=== PATIENT | female | born 1945 | race Two or more races ===

== ENCOUNTER 2021-02-11 11:47 | Inpatient (IN) | payer OTHER ==
[~2021-02-11] VITALS: Ht 157.5 cm; Wt 58.1 kg
[2021-02-11] MEDS ORDERED: LEVOTHYROXINE75 MCG PO (12:09)
[2021-02-11] MEDS ORDERED: AMLODIPINE BESYL5 MG PO (12:09)
[2021-02-11] MEDS ORDERED: GABAPENTIN300 M2 PO (12:10)
[2021-02-11] MEDS ORDERED: VASOTEC20 MG PO (12:10)
[2021-02-11] MEDS ORDERED: PROTONIX20 MG PO (12:11)
[2021-02-11] MEDS ORDERED: ELIQUIS5 M1 PO (12:11)
[2021-02-13] MEDS ORDERED: MAXIMUM D3325 MCG (11:29)
[2021-02-13] MEDS ORDERED: FLORAVANCE CAP1 EACH (11:29)
[2021-02-13] MEDS ORDERED: FAMOTIDINE20 MG (11:29)
[2021-02-13] MEDS ORDERED: ALENDRONATE SOD70 MG (11:30)
[2021-02-13] MEDS ORDERED: EZETIMIBE10 MG (11:30)
== END 2021-02-14 11:51 | disposition home or self-care (01) | DRG 390 ==
LOC: ER 11:47 → SURH 18:19
PROVIDERS: ADMIT Colon & Rectal Surgery; ATTEND Colon & Rectal Surgery
PROC: BW21YZZ Computerized Tomography (CT Scan) of Abdomen and Pelvis using Other Contrast (ICD-10-PCS; principal; 2021-02-11)
DX: K56.690 Other partial intestinal obstruction (principal); Z20.822 Contact with and (suspected) exposure to COVID-19

== ENCOUNTER 2021-03-13 08:30 | Inpatient (IN) | payer OTHER ==
[~2021-03-13] VITALS: Ht 157.5 cm; Wt 56.7 kg
[~2021-03-13 08:30] MED LIST: ALENDRONATE SOD70 MG; AMLODIPINE BESYL5 MG PO; ELIQUIS5 M1 PO; EZETIMIBE10 MG; FAMOTIDINE20 MG; FLORAVANCE CAP1 EACH; GABAPENTIN300 M2 PO; LEVOTHYROXINE75 MCG PO; MAXIMUM D3325 MCG; PROTONIX20 MG PO; VASOTEC20 MG PO
[2021-03-19] MEDS ORDERED: SOTALOL120 MG (11:35)
[2021-03-19] MEDS ORDERED: DICYCLOMINE HCL10 MG (11:35)
== END 2021-03-27 17:47 | disposition home or self-care (01) | DRG 330 ==
LOC: O/R 03-19 07:34 → SURG 03-19 07:34 → SURH 03-19 08:30 → SURG 03-19 16:49
PROVIDERS: ADMIT Colon & Rectal Surgery; ATTEND Colon & Rectal Surgery
PROC: 0DNW4ZZ Release Peritoneum, Percutaneous Endoscopic Approach (ICD-10-PCS; 2021-03-19)
PROC: 0DTP4ZZ Resection of Rectum, Percutaneous Endoscopic Approach (ICD-10-PCS; 2021-03-19)
PROC: 0DB84ZZ Excision of Small Intestine, Percutaneous Endoscopic Approach (ICD-10-PCS; principal; 2021-03-19 10:15)
DX: K57.32 Diverticulitis of large intestine without perforation or abscess without bleeding (principal); I48.20 Chronic atrial fibrillation, unspecified; E87.6 Hypokalemia; I10 Essential (primary) hypertension; Z79.01 Long term (current) use of anticoagulants; K66.0 Peritoneal adhesions (postprocedural) (postinfection)

== ENCOUNTER 2022-08-26 06:22 | Day surgery (SDC) | payer OTHER ==
[~2022-08-26 06:22] MED LIST changes: +DICYCLOMINE HCL10 MG; +SOTALOL120 MG
== END 2022-08-26 09:50 | disposition home or self-care (01) ==
LOC: AMB-ENDOS 06:22 → CIR.AMB 13:00
PROVIDERS: ATTEND Colon & Rectal Surgery
DX: K91.858 Other complications of intestinal pouch (principal); K62.4 Stenosis of anus and rectum; K64.1 Second degree hemorrhoids; Z20.822 Contact with and (suspected) exposure to COVID-19; E03.9 Hypothyroidism, unspecified; I10 Essential (primary) hypertension; K57.30 Diverticulosis of large intestine without perforation or abscess without bleeding

== ENCOUNTER → 2023-06-03 | Day surgery (SDC) | payer OTHER | END | disposition home or self-care (01) | LOC: ADM 05-29 14:00 → AMB-ENDOS 06:00 | PROVIDERS: ATTEND Colon & Rectal Surgery | DX: K57.30 Diverticulosis of large intestine without perforation or abscess without bleeding (principal); K64.8 Other hemorrhoids; K57.32 Diverticulitis of large intestine without perforation or abscess without bleeding; K92.1 Melena; Z20.822 Contact with and (suspected) exposure to COVID-19 ==